=== PATIENT | female | born 1960 | race Caucasian/White ===

== ENCOUNTER 2024-11-08 17:33 | Inpatient (IN) | payer OTHER ==
[~2024-11-08] VITALS: Ht 154.9 cm; Wt 61.7 kg
[2024-11-08 18:10] VITALS: RESP 25
[2024-11-08] MEDS: METHYLPREDNISOLONE SOD SUCC 125MG/2ML (ACT-O-VIAL) IV STA (18:13)
[2024-11-08] MEDS: MAGNESIUM 2 G PREMIX 50 ML IV ONE (18:13)
[2024-11-08] MEDS: SODIUM CHLORIDE 0.9% (SEPSIS BOLUS) IV ONE (18:18)
[2024-11-08] MEDS ORDERED: ALBUTEROL (0.083%) 2.5MG/3ML NEB HHN SCH (18:30)
[2024-11-08] MEDS: CEFTRIAXONE 1GM/50ML 50 ML IV ONE (18:42)
[2024-11-08 19:01] LABS: BG CARBOXYHEMOGLOBIN 0.9 % (0.5-1.5); BG DEOXYHEMOGLOBIN 0.4 % (0.0-5.0); BG FRACTION INSPIRED OXYGEN 60; BG HCO3 ACT 31.4 mmol/L (21.0-28.0); BG OXYGEN SATURATION 99.6 % (94.0-98.0); BG OXYHEMOGLOBIN 98.7 % (94.0-98.0); BG PCO2 65.7 mmHg (32.0-45.0); BG PH 7.297 (7.350-7.450); BG PO2 225.7 mmHg (83.0-108.0); BG SAMPLE SITE RIGHT BRACHIAL; BG TOTAL HEMOGLOBIN 14.1 g/dL (12.0-16.0); BG VENT MODE MASK - BIPAP
[2024-11-08] MEDS: AZITHROMYCIN 500MG/250ML 250 ML IV ONE (19:14)
[2024-11-08 19:33] LABS: HEMATOCRIT. 41.4 % (36.0-48.0); HEMOGLOBIN. 12.9 g/dL (12.0-16.0); MEAN CORPUSCULAR HEMOGLOBIN 28.3 pg (28.0-32.0); MEAN CORPUSCULAR HGB CONC 31.1 g/dL (31.0-37.0); MEAN CORPUSCULAR VOLUME 91.1 fL (81.0-99.0); MEAN PLATELET VOLUME 8.7 fl (7.4-10.4); PLATELET 291 x1000/uL (130-400); RED BLOOD CELL COUNT 4.54 mill/uL (4.2-5.4); RED CELL DISTRIBUTION WIDTH 13.8 % (11.6-14.6); WHITE BLOOD COUNT 7.7 x1000/uL (4.5-11.0)
[2024-11-08 19:35] LABS: CHLORIDE 103 mEq/L (98-107); POTASSIUM 4.8 mEq/L (3.5-5.1); SODIUM 139 mEq/L (136-145)
[2024-11-08 19:36] LABS: CALCIUM 9.6 mg/dL (8.7-10.4); CARBON DIOXIDE 25 mEq/L (21-32)
[2024-11-08 19:37] LABS: DIFFERENTIAL COMMENT 1
[2024-11-08 19:38] LABS: PARTIAL THROMBOPLASTIN TIME 22.9 sec (23.4-31.0); PROTHROMBIN TIME 10.3 sec (9.6-11.0)
[2024-11-08 19:41] LABS: CREATININE 0.9 mg/dL (0.6-1.0); GLUCOSE 202 mg/dL (70-105); LACTIC ACID 2.8 mmol/L (0.4-2.0); UREA NITROGEN BLOOD 18 mg/dL (9-23)
[2024-11-08 19:43] LABS: ALANINE AMINOTRANSFERASE 32 IU/L (10-49); ALBUMIN 4.3 g/dL (3.2-4.8); ASPARTATE AMINOTRANSFERASE 24 IU/L (<34); BILIRUBIN TOTAL 0.3 mg/dL (0.1-1.0); PROTEIN TOTAL 7.3 g/dL (6.0-8.3)
[2024-11-08 19:45] VITALS: RESP 25
[2024-11-08 20:21] LABS: BILIRUBIN DIRECT < 0.1 mg/dL (<=3.0)
[2024-11-08 20:22] LABS: ETHANOL BLOOD < 10 mg/dL (<10); TROPONIN I HIGH SENSITIVITY 137 ng/L (3.0-34)
[2024-11-08 21:37] LABS: PLATELET ESTIMATE NORMAL
[2024-11-08 21:46] LABS: TROPONIN I HIGH SENSITIVITY 119 ng/L (3.0-34)
[2024-11-09] VITALS (15 sets, daily range): BP systolic 107–141; BP diastolic 69–104; PULSE 93–129; RESP 14–24; TEMP 36.6–37.5; O2SAT 97–98
[2024-11-09] MEDS: ASPIRIN 81MG TABLET PO SCH (02:15)
[2024-11-09] MEDS ORDERED: IPRATROPIUM/ALBUTEROL 0.5-3(2.5)MG/3ML NEB HHN PRN (02:15)
[2024-11-09 02:23] LABS: TROPONIN I HIGH SENSITIVITY 86 ng/L (3.0-34)
[2024-11-09] MEDS: IPRATROPIUM/ALBUTEROL 0.5-3(2.5)MG/3ML NEB HHN SCH (05:10)
[2024-11-09] MEDS: METHYLPREDNISOLONE SOD SUCC 125MG/2ML (ACT-O-VIAL) IV SCH (05:54)
[2024-11-09] MEDS: BUDESONIDE 0.5MG/2ML NEB HHN SCH (08:47)
[2024-11-09] MEDS: ENOXAPARIN 40MG/0.4ML SYR SUBCUT SCH ×2 (10:06→18:59)
[2024-11-09 11:36] LABS: HEMATOCRIT. 39.2 % (36.0-48.0); HEMOGLOBIN. 12.2 g/dL (12.0-16.0); MEAN CORPUSCULAR HEMOGLOBIN 28.1 pg (28.0-32.0); MEAN CORPUSCULAR HGB CONC 31.2 g/dL (31.0-37.0); MEAN CORPUSCULAR VOLUME 90.2 fL (81.0-99.0); MEAN PLATELET VOLUME 8.9 fl (7.4-10.4); PLATELET 310 x1000/uL (130-400); RED BLOOD CELL COUNT 4.35 mill/uL (4.2-5.4); RED CELL DISTRIBUTION WIDTH 13.7 % (11.6-14.6); WHITE BLOOD COUNT 7.6 x1000/uL (4.5-11.0)
[2024-11-09] MEDS ORDERED: AZITHROMYCIN 500 MG TABLET PO SCH (11:45)
[2024-11-09 11:54] LABS: DIFFERENTIAL COMMENT 1
[2024-11-09 12:03] LABS: CHLORIDE 105 mEq/L (98-107); POTASSIUM 4.8 mEq/L (3.5-5.1); SODIUM 142 mEq/L (136-145)
[2024-11-09 12:04] LABS: CARBON DIOXIDE 30 mEq/L (21-32)
[2024-11-09 12:05] LABS: CALCIUM 9.5 mg/dL (8.7-10.4)
[2024-11-09 12:09] LABS: CREATININE 0.9 mg/dL (0.6-1.0)
[2024-11-09 12:10] LABS: GLUCOSE 152 mg/dL (70-105); UREA NITROGEN BLOOD 18 mg/dL (9-23)
[2024-11-09 12:46] LABS: TROPONIN I HIGH SENSITIVITY 38 ng/L (3.0-34)
[2024-11-09 13:56] LABS: NUCLEATED RED BLOOD CELLS 3 /100 WBC; PLATELET ESTIMATE NORMAL
[2024-11-09] MEDS: PANTOPRAZOLE SODIUM 40 MG/VIAL IV SCH (18:55)
[2024-11-09] MEDS: METHYLPREDNISOLONE SOD SUCC 40MG/ML (ACT-O-VIAL) IV SCH (18:55)
[2024-11-09] MEDS: CEFTRIAXONE 1GM/50ML 50 ML IV SCH (19:00)
[2024-11-09] MEDS: AZITHROMYCIN 500MG/250ML 250 ML IV SCH (19:00)
[2024-11-09] MEDS: FUROSEMIDE 40MG/4ML VIAL IVP SCH (19:05)
[2024-11-09] MEDS ORDERED: ACETAMINOPHEN 650MG/20.3ML UDC PO PRN (23:30)
[2024-11-09 23:41] LABS: CLARITY URINE CLEAR (CLEAR); COLOR URINE YELLOW (YELLOW); GLUCOSE URINE 2+ (NEGATIVE); KETONES URINE NEGATIVE (NEGATIVE); LEUKOCYTE ESTERASE URINE NEGATIVE (NEGATIVE); NITRITE URINE NEGATIVE (NEGATIVE); OCCULT BLOOD URINE TRACE (NEGATIVE); PROTEIN URINE 1+ (NEGATIVE); SPECIFIC GRAVITY URINE 1.015 (1.005-1.030); UROBILINOGEN URINE 0.2 E.U./dL (0.2-1.0)
[2024-11-09] MEDS: ACETAMINOPHEN 325MG TABLET PO PRN (23:45)
[2024-11-09 23:53] LABS: *AMPHETAMINES SCREEN URINE NEGATIVE (NEGATIVE); *BARBITURATES SCREEN URINE NEGATIVE (NEGATIVE); *BENZODIAZEPINES SCREEN URINE NEGATIVE (NEGATIVE); *COCAINE SCREEN URINE NEGATIVE (NEGATIVE); CANNABINOID URINE SCREEN NEGATIVE (NEGATIVE); ECSTASY MDMA SCREEN URINE NEGATIVE (NEGATIVE); METHADONE URINE SCREEN NEGATIVE (NEGATIVE); OPIATES URINE SCREEN NEGATIVE (NEGATIVE); PHENCYCLIDINE URINE SCREEN NEGATIVE (NEGATIVE)
[2024-11-10] VITALS (18 sets, daily range): BP systolic 100–130; BP diastolic 70–87; PULSE 89–122; RESP 16–25; TEMP 36.3–37.9; O2SAT 91–100
[2024-11-10 01:38] LABS: WBC URINE 0-2 /hpf (0-2)
[2024-11-10 01:39] LABS: BACTERIA URINE TRACE; RBC URINE 0-2 /hpf (0-2); SQUAMOUS EPITHELIAL CELL URINE FEW /lpf (RARE/1+)
[2024-11-10 04:47] LABS: INFLUENZA TYPE A Presumptive Negative (Pres. Neg.); INFLUENZA TYPE B Presumptive Negative (Pres. Neg.); RESPIRATORY SYNCYTIAL VIRUS Not Detected (Not Detectd)
[2024-11-10] MEDS: GUAIFENESIN 600MG ER TABLET PO SCH (22:03)
[2024-11-11] VITALS (17 sets, daily range): BP systolic 104–145; BP diastolic 72–91; PULSE 87–124; RESP 16–29; TEMP 36.3–37.2; O2SAT 88–98
[2024-11-11 06:32] LABS: CHLORIDE 100 mEq/L (98-107); POTASSIUM 4.1 mEq/L (3.5-5.1); SODIUM 141 mEq/L (136-145)
[2024-11-11 06:35] LABS: CALCIUM 9.4 mg/dL (8.7-10.4); CARBON DIOXIDE 37 mEq/L (21-32)
[2024-11-11 06:39] LABS: HEMATOCRIT. 38.5 % (36.0-48.0); HEMOGLOBIN. 12.4 g/dL (12.0-16.0); MEAN CORPUSCULAR HEMOGLOBIN 27.9 pg (28.0-32.0); MEAN CORPUSCULAR HGB CONC 32.2 g/dL (31.0-37.0); MEAN CORPUSCULAR VOLUME 86.5 fL (81.0-99.0); MEAN PLATELET VOLUME 8.7 fl (7.4-10.4); PLATELET 349 x1000/uL (130-400); RED BLOOD CELL COUNT 4.45 mill/uL (4.2-5.4); RED CELL DISTRIBUTION WIDTH 12.9 % (11.6-14.6); WHITE BLOOD COUNT 13.6 x1000/uL (4.5-11.0)
[2024-11-11 06:40] LABS: ALANINE AMINOTRANSFERASE 29 IU/L (10-49); CREATININE 0.8 mg/dL (0.6-1.0); GLUCOSE 199 mg/dL (70-105); UREA NITROGEN BLOOD 27 mg/dL (9-23)
[2024-11-11 06:42] LABS: ALBUMIN 3.7 g/dL (3.2-4.8); ASPARTATE AMINOTRANSFERASE 18 IU/L (<34); BILIRUBIN TOTAL 0.2 mg/dL (0.1-1.0); PROTEIN TOTAL 6.1 g/dL (6.0-8.3)
[2024-11-11 07:07] LABS: BILIRUBIN DIRECT < 0.1 mg/dL (<=3.0)
[2024-11-11 07:14] LABS: INR 0.9; PROTHROMBIN TIME 9.9 sec (9.6-11.0)
[2024-11-11 07:55] LABS: DIFFERENTIAL COMMENT 1
[2024-11-12] VITALS (16 sets, daily range): BP systolic 103–137; BP diastolic 76–91; PULSE 75–123; RESP 15–27; TEMP 36.7–36.9; O2SAT 93–99
[2024-11-12 07:41] LABS: CHLORIDE 95 mEq/L (98-107); SODIUM 142 mEq/L (136-145)
[2024-11-12 07:43] LABS: CALCIUM 9.4 mg/dL (8.7-10.4); CARBON DIOXIDE 39 mEq/L (21-32)
[2024-11-12 07:47] LABS: CREATININE 0.9 mg/dL (0.6-1.0)
[2024-11-12 07:48] LABS: GLUCOSE 224 mg/dL (70-105); UREA NITROGEN BLOOD 27 mg/dL (9-23)
[2024-11-12 08:00] LABS: HEMATOCRIT. 38.9 % (36.0-48.0); HEMOGLOBIN. 12.7 g/dL (12.0-16.0); MEAN CORPUSCULAR HGB CONC 32.5 g/dL (31.0-37.0); MEAN CORPUSCULAR VOLUME 86.2 fL (81.0-99.0); MEAN PLATELET VOLUME 8.7 fl (7.4-10.4); PLATELET 353 x1000/uL (130-400); RED BLOOD CELL COUNT 4.52 mill/uL (4.2-5.4); WHITE BLOOD COUNT 14.1 x1000/uL (4.5-11.0)
[2024-11-12 08:45] LABS: DIFFERENTIAL COMMENT 1
[2024-11-12] MEDS ORDERED: IPRA3AMP9 NEB (12:50)
[2024-11-12] MEDS ORDERED: LEVO750T68 MT (12:50)
[2024-11-12] MEDS ORDERED: FLUT1DIS3 INH (12:50)
[2024-11-12] MEDS ORDERED: P20 MT (12:50)
[2024-11-13 07:44] LABS: PLATELET ESTIMATE NORMAL
[2024-11-13 16:20] LABS: PLASMA CELLS 1 %; PLATELET ESTIMATE NORMAL
== END 2024-11-12 21:00 | disposition home or self-care (01) | DRG 871 ==
LOC: ER 17:33 → EDBEDREQ 18:05 → 5EST 22:03 → EDBEDREQ 22:14 → EDBEDREQTM 22:14
PROVIDERS: ADMIT Internal Medicine; ATTEND Internal Medicine
PROC: 5A09357 Assistance with Respiratory Ventilation, Less than 24 Consecutive Hours, Continuous Positive Airway Pressure (ICD-10-PCS; principal; 2024-11-08)
PROC: 5A09357 Assistance with Respiratory Ventilation, Less than 24 Consecutive Hours, Continuous Positive Airway Pressure (ICD-10-PCS; 2024-11-09)
PROC: 5A09357 Assistance with Respiratory Ventilation, Less than 24 Consecutive Hours, Continuous Positive Airway Pressure (ICD-10-PCS; 2024-11-10)
PROC: 5A09357 Assistance with Respiratory Ventilation, Less than 24 Consecutive Hours, Continuous Positive Airway Pressure (ICD-10-PCS; 2024-11-11)
DX: A41.9 Sepsis, unspecified organism (principal); I21.A1 Myocardial infarction type 2; J96.01 Acute respiratory failure with hypoxia; J96.02 Acute respiratory failure with hypercapnia; J44.1 Chronic obstructive pulmonary disease with (acute) exacerbation; Z20.822 Contact with and (suspected) exposure to COVID-19; R65.20 Severe sepsis without septic shock; R91.1 Solitary pulmonary nodule; I16.0 Hypertensive urgency; J43.2 Centrilobular emphysema; B97.4 Respiratory syncytial virus as the cause of diseases classified elsewhere; D72.825 Bandemia; Z99.81 Dependence on supplemental oxygen; Z91.199 Patient's noncompliance with other medical treatment and regimen due to unspecified reason; Z79.82 Long term (current) use of aspirin; I25.2 Old myocardial infarction
CPT/HCPCS: 36415; 36600; 71045; 71275; 80048; 80076; 80305; 80320; 81003; 82375; 82805; 83605; 83735; 83880; 84100; 84145; 84484; 85025; 86850; 86900; 87420; 87426; 87804; 93005; 94070; 94640; 94660; 94664; 98960; 99291; A4606; J0456; J0696; J1650; J1940; J2470; J2919; J2920; J3475; J7030; J7626; G0480